=== PATIENT | female | born 1935 | race Caucasian/White ===

== ENCOUNTER → 2016-07-09 | Outpatient (CLI) | payer MEDICARE, MEDICAID ==
[~2016-07-09] MED LIST: CEPH250C PO; GABA250S2 GT; LEV500T PO; Pantoprazole Sodium Sesquihydr PO; RIVA10TA PO; SACC250C PO
== END | disposition home or self-care (01) ==
LOC: XY 10:51
PROVIDERS: ATTEND Internal Medicine
DX: L03.115 Cellulitis of right lower limb (principal)
CPT/HCPCS: 93925